=== PATIENT | male | born 1990 | race Caucasian/White ===

== ENCOUNTER 2019-07-04 17:19 | Emergency (ER) | payer SELFPAY ==
[2019-07-04 17:46] VITALS: BP 120/59; PULSE 67; RESP 16; TEMP 36.8; O2SAT 97; BMI 20.2
--- NOTE | 2019-07-04 18:45 | XR_ITS ---
WS: [id number] Chest with right rib detail, 07/04/2019 Clinical Data: injury Comparison: None. Findings: The lungs show no nodules, masses, or effusions. The heart is normal. No pneumonia or pneumothorax is seen. The ribs are intact. No rib fractures seen. No subcutaneous emphysema is present. XR/XR ribs RT mn 3V w [id number] Impression: Negative chest with right rib detail.
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
[2019-07-04] MEDS: ketorolac 30 mg/mL INJ IM (19:07)
[2019-07-04 20:02] VITALS: BP 112/63; PULSE 57; RESP 17; O2SAT 98
== END 2019-07-04 20:02 | disposition home or self-care (01) ==
PROVIDERS: Emergency Provider Nurse Practitioner Family
DX: S29.011A Strain of muscle and tendon of front wall of thorax, initial encounter (principal); Z87.891 Personal history of nicotine dependence; W22.8XXA Striking against or struck by other objects, initial encounter; Y93.89 Activity, other specified; Y92.828 Other wilderness area as the place of occurrence of the external cause
CPT/HCPCS: 12345; 71101; 96372; 99281; 99283; J1885